=== PATIENT | male | born 1985 | race Caucasian/White ===

== ENCOUNTER 2019-06-15 08:40 | Day surgery (SDC) | payer BC ==
[2019-06-11 11:52] LABS: BASOPHILS # (AUTO) 0.1 X10'3 (0-0.2); BASOPHILS % (AUTO) 0.8 % (0-1); EOSINOPHILS # (AUTO) 0.2 X10'3 (0-0.9); EOSINOPHILS % (AUTO) 2.3 % (0-6); LYMPHOCYTES % (AUTO) 29.6 % (21-51); MEAN CORPUSCULAR HEMOGLOBIN 30.7 PG (27.0-31.0); MEAN CORPUSCULAR VOLUME 87.9 FL (78-98); MEAN PLATELET VOLUME 8.6 FL (7.4-10.4); MONOCYTES # (AUTO) 0.5 X10'3 (0-0.9); MONOCYTES % (AUTO) 7.2 % (2-12); NEUTROPHILS % (AUTO) 60.1 % (42-75); PRE OP HEMATOCRIT 42.1 % (42.0-52.0); PRE OP HEMOGLOBIN 14.7 g/dL (14.0-17.9); PRE OP PLATELET COUNT 223 X10'3 (140-440); RED BLOOD COUNT 4.79 X10'6 (4.70-6.10)
[2019-06-11 11:59] LABS: PRE OP PROTIME 10.3 SECONDS (9.0-12.0)
[2019-06-11 12:02] LABS: ALBUMIN 4.2 G/DL (3.4-5.0); ALBUMIN/GLOBULIN RATIO 1.4 (1.1-1.5); ALKALINE PHOSPHATASE 61 IU/L (46-116); BLOOD UREA NITROGEN 16 MG/DL (7-18); BUN/CREATININE RATIO 20.5 (5.4-32.0); CHLORIDE 106 MMOL/L (99-107); CREATININE 0.78 MG/DL (0.60-1.10); PRE OP ALT 26 U/L (30-65); PRE OP ANION GAP 6 (8-16); PRE OP AST 17 U/L (10-37); PRE OP BILIRUB, TOTAL 0.6 MG/DL (0.0-1.0); PRE OP GLUCOSE 94 MG/DL (70-104); PRE OP POTASSIUM 4.4 MMOL/L (3.4-5.1); PRE OP SODIUM 142 MMOL/L (135-145); TOTAL CARBON DIOXIDE 29.7 MMOL/L (24-32); TOTAL PROTEIN 7.1 G/DL (6.4-8.2); eGFR > 90 ML/MIN
[2019-06-15] VITALS (11 sets, daily range): BP systolic 113–138; BP diastolic 74–88
[~2019-06-15] VITALS: Ht 182.9 cm; Wt 77.1 kg
[~2019-06-15 08:40] MED LIST: AMOX-580 PO; famotidine 20mg tablet PO ONE; ringers solution, lacted 1,000 ML IV SCH
[2019-06-15] MEDS ORDERED: cocaine 4% topical solution 4ml bottle ONE (10:51)
[2019-06-15] MEDS ORDERED: LIDOcaine 1% W/epiNEPHrine 1:100,000 20ml vial ONE (10:51)
[2019-06-15] MEDS ORDERED: mupirocin 2% ointment 22GM ONE (10:51)
[2019-06-15] MEDS ORDERED: oxymetazoline 15 ML nasal spray NS ONE (10:52)
[2019-06-15] MEDS ORDERED: BUPIVAcaine 0.5% W/EPI /PF 30ml vial ONE (10:52)
[2019-06-15] MEDS ORDERED: methylPREDNISolone sod succ 125mg/2ml vial ONE (11:50)
[2019-06-15] MEDS ORDERED: midazolam 2 mg/2 ml injection ONE (11:51)
[2019-06-15] MEDS ORDERED: fentaNYL/PF 50MCG/1 ML 2ML syringe ONE (11:51)
[2019-06-15] MEDS ORDERED: cefTAZidime 1gm inj ONE (11:51)
[2019-06-15] MEDS ORDERED: rocuronium 10mg/ml inj IV ONE (11:52)
[2019-06-15] MEDS ORDERED: sevoflurane 250ml liquid IH ONE (11:52)
[2019-06-15] MEDS ORDERED: methylPREDNISolone acetate 80mg/ml inj**IM only ONE (11:53)
[2019-06-15] MEDS ORDERED: propofol inj 20 ML IV ONE (11:54)
[2019-06-15] MEDS ORDERED: dexamethasone sod phosphate 4mg/ml inj. ONE (12:06)
[2019-06-15] MEDS ORDERED: ringers solution, lacted 1,000 ML IV SCH (12:26)
[2019-06-15] MEDS ORDERED: morphine 4 MG/ML inj SYRINge IV PRN (12:30)
[2019-06-15] MEDS ORDERED: proCHLORperazine 10 MG/2 ml inj IV PRN (12:30)
[2019-06-15] MEDS ORDERED: ondansetron/PF 4mg/2ml inj IV PRN ×2 (12:30→14:30)
[2019-06-15] MEDS ORDERED: morphine 2 MG/ML inj. syringe IV PRN (12:30)
[2019-06-15] MEDS ORDERED: meperidine/PF 25mg/ml syringe IV PRN ×3 (12:30)
[2019-06-15] MEDS ORDERED: ondansetron/PF 4mg/2ml inj ONE (13:14)
--- NOTE | 2019-06-15 14:05 | NUR ---
Received from OR via BED , accompanied by Anesthesiologist DR LUCIANO and report given by Anesthesiolgist. PATIENT WAKING UP, DENIES PAIN, V/S WNL, CSM INTACT, 20G PIV TO RUE, COTTONOID PACKING TO BILATERALLY SINUSES WITH NO ACTIVE DRAINAGE VISABLE AT THIS TIME
[2019-06-15] MEDS ORDERED: salt irrigation nasal spray 45 ML SPRAY NS PRN (14:25)
[2019-06-15] MEDS ORDERED: oxymetazoline 15 ML nasal spray NS SCH ×2 (14:36→20:00)
--- NOTE | 2019-06-15 15:25 | NUR ---
PATIENT A&OX4, DENIES PAIN, V/S WNL, CSM INTACT, 20G PIV TO RUE D/C, COTTONOID PACKING TO BILATERALLY SINUSES D/C 30MIN AFTER ARRIVAL TO PACU WITH NO ACTIVE DRAINAGE VISABLE AT THIS TIME. PATIENT GIVEN FIRST DOSE OF OCEAN SPRAY AND OINTMENT ORDERED BY MD. I HAVE REVIEWED D/C INSTRUCTIONS WITH PATIENT AND FAMILY AND THEY HAVE VERBALIZED UNDERSTANDING. PATIENT D/C HOME WITH ALL BELONGINGS AND FAMILY GAVE TRANSPORT HOME.
== END 2019-06-15 15:25 | disposition home or self-care (01) ==
LOC: PAS 08:40
PROVIDERS: ATTEND Otolaryngology
DX: J32.9 Chronic sinusitis, unspecified (principal); J33.9 Nasal polyp, unspecified; J32.4 Chronic pansinusitis; Z72.89 Other problems related to lifestyle
CPT/HCPCS: 31253; 31257; 31267; 36415; 61782; 80053; 82948; 85025; 85576; 85610; 85730; A6402; C1726; C9250; J0713; J1040; J1100; J2175; J2250; J2405; J2704; J2930; J3010; J7040; J7120; A4618; A7000